=== PATIENT | male | born 1940 | race Caucasian/White ===

== ENCOUNTER 2019-07-24 07:27 | Emergency (ER) | payer BC, SELFPAY ==
[2019-07-24] VITALS (20 sets, daily range): BP systolic 113–149; BP diastolic 69–98; PULSE 92; RESP 20; TEMP 36.5; O2SAT 96–100
--- NOTE | 2019-07-24 07:57 | ED.MALEGU ---
HPI - Male Genitourinary General Chief complaint: Urogenital-Male Stated complaint: difficulty urinating Time Seen by Provider: 07/24/19 07:33 Source: patient Mode of arrival: ambulatory Limitations: no limitations History of Present Illness HPI Narrative: This is a 79 year old male with history of urination retention in which he self cath daily who presents with complaint of inability to urinate. He has been been performing self catheterizations 2 -3 times daily for 2 years. He states starting a day and a half ago he has been unable to get catheter to pass. He still has been able to urinate small amounts until this morning. He states he was last able to urinate at 1130 last night and this morning he can not urinate at all. He denies associated nausea, vomiting, fever, or back pain. He has lower abdominal pressure. Related Data Allergies Allergy/AdvReac Type Severity Reaction Status Date / Time No Known Allergies Allergy Verified 07/24/19 07:47 Review of Systems Review of Systems: All systems reviewed & are unremarkable except as noted in HPI and below Constitutional: Constitutional: Denies chills and Denies fever(s) Respiratory: Respiratory: Reports no additional respiratory complaints Gastrointestinal: Gastrointestinal: Reports abdominal pain, Denies diarrhea, Denies nausea, Denies odynophagia and Denies vomiting Genitourinary: Genitourinary: Denies flank pain Musculoskeletal: Musculoskeletal: Denies back pain PMFSH Past Medical History Medical History (Updated 07/24/19 @ 10:52 by Nicole Maciel MD) History of BPH Surgical History Surgical History (Updated 07/24/19 @ 07:58 by Nicole Maciel MD) S/P TURP Social History Social History Gender identity (if verbalized by the patient): Male Exam Narrative: Exam Narrative: GENERAL: Well-appearing, well-nourished, and in no acute distress. HEAD: Normocephalic, atraumatic EYES: PERRLA and EOMI, conjunctiva clear without discharge THROAT:Mucous membranes moist, Oropharynx normal without erythema, exudate, peritonsillar swelling or fluctuance NECK: Supple, without lymphadenopathy or mass RESPIRATORY: No respiratory distress, Airway patent, Respirations non-labored, Clear to auscultation without rales, rhonchi or wheeze HEART: Regular rate and rhythm. No murmur heard. Normal peripheral pulses. ABDOMEN: Soft, nontender, Distended, normal active bowel sounds. No masses. No rebound or guarding, No organomegaly. EXTREMITIES: No edema, normal strength with full range of motion. SKIN: Warm, dry, normal color without rash NEURO: Alert and oriented x3. CN 2-12 grossly intact. No focal deficits. PSYCH: Normal mood and affect. Course Reevaluation(s) Reevaluation #1: Dr. Powell came down to ER to perform cystoscope and dilation. Nursing states patient left ER before he could be discharge with antibiotics Date: 07/24/19 Time: 10:50 Reevaluation #2: Patient was called at home and prescription of cipro transmitted to his pharmacy Date: 07/24/19 Time: 17:23 Consultations Consultation #1: I Discussed case with DR. Powell and he will come down to ER to perform cysto and possible dilation. He request patient to be given dose of antibiotics. Date: 07/24/19 Time: 08:53 Vital Signs Vital signs: Vital Signs Pulse Oximetry 96 07/24/19 07:43 Temperature 97.7 F 07/24/19 07:45 Pulse Rate 92 07/24/19 07:45 Respiratory Rate 20 07/24/19 07:45 Blood Pressure 128/88 07/24/19 10:01 Pulse Oximetry 97 07/24/19 10:00 MDM - Male Genitourinary Lab Data Result diagrams: 07/24/19 08:10 07/24/19 08:10 Labs: Lab Results 07/24/19 07/24/19 07/24/19 Range/Units 08:10 08:10 10:17 WBC 12.9 H (4.5-10.0) K/mm3 RBC 4.88 (4.6-6.20) M/mm3 Hgb 13.9 L (14.0-18.0) g/dL Hct 42.2 (42.0-52.0) % MCV 86.5 (80-100) fl MCH 28.5 (26-34) pg MCHC 32.9 (32-36) g/dl RDW 13.2
[2019-07-24 08:16] LABS: Basophils Absolute Auto 0.1 K/mm3 (0.0-0.1); Basophils Percent Auto 0.6 % (0.2-1.2); Eosinophils Absolute Auto 0.3 K/mm3 (0-0.3); Eosinophils Percent Auto 2.4 % (0-4.4); Hematocrit 42.2 % (42.0-52.0); Hemoglobin 13.9 g/dL (14.0-18.0); Immature Granulocyte Absolute 0.11 K/mm3 (0.00-0.031); Immature Granulocyte Percent A 0.9 % (0-0.5); Lymphocytes Absolute Auto 1.97 K/mm3 (0.9-3.2); Lymphocytes Percent Auto 15.2 % (18.3-44.2); Mean Corpuscular HGB Conc 32.9 g/dl (32-36); Mean Corpuscular Hemoglobin 28.5 pg (26-34); Mean Corpuscular Volume 86.5 fl (80-100); Mean Platelet Volume 9.8 fl (7.4-10.4); Monocytes Absolute Auto 0.9 K/mm3 (0.1-0.6); Monocytes Percent Auto 6.8 % (2.6-8.5); Neutrophils Absolute Auto 9.6 K/mm3 (1.3-6.7); Neutrophils Percent Auto 74.1 % (45.5-73.1); Platelet Count Result 222 k/mm3 (150-375); Red Blood Count 4.88 M/mm3 (4.6-6.20); Red Cell Distribution Width 13.2 % (11.5-14.5); White Blood Count 12.9 K/mm3 (4.5-10.0)
[2019-07-24 08:30] LABS: Alanine Aminotransferase 21 U/L (4-50); Alkaline Phosphatase 100 U/L (38-126); Aspartate Amino Transferase 27 U/L (17-59); Bilirubin,Total 0.4 mg/dL (0.2-1.3); Blood Urea Nitrogen 23 mg/dL (9-20); Calcium 9.2 mg/dL (8.4-10.2); Carbon Dioxide 23 mmol/L (22-30); Chloride 105 mmol/L (98-107); Estimated CRCL calculation 28 ml/min; Estimated Glomerular Filt Rate 34; Glucose 111 mg/dL (75-110); Potassium 4.1 mmol/L (3.4-5.0); Sodium 135 mmol/L (137-145)
[2019-07-24] MEDS: CIPROFLOXACIN 500 MG TAB PO (10:05)
[2019-07-24 10:40] LABS: Add Urine Microscopic? YES; Appearance Urine Cloudy (Clear); Bilirubin Urine Negative (Negative); Blood Urine 3+ (Negative); Color Urine Yellow (Yellow); Glucose Urine UA Negative (Negative); Ketones Urine Negative (Negative); Leukocyte Esterase Ur 3+ LEU/UL (Negative); Nitrate Urine Positive (Negative); Protein Urine 2+ mg/dL (Negative); Specific Grav Ur 1.013 (1.001-1.035); Urobilinogen Urine Negative mg/dL (<2.0)
[2019-07-24 10:43] LABS: Bacteria Urine Trace /hpf; Budding Yeast Urine Present /hpf; RBC Urine >75 /hpf (0-2); Transitional Epi Cells Urine Rare /hpf (None Seen); WBC Clumps Urine Present /HPF; WBC Urine >75 /hpf
--- NOTE | 2019-07-24 18:42 | CONS_ITS ---
DATE OF CONSULTATION: 07/24/2019 PHYSICIAN REQUESTING CONSULTATION: Dr. Maciel in the emergency department. REASON FOR CONSULTATION: Urinary retention. HISTORY OF PRESENT ILLNESS: The patient is a 79-year-old gentleman with a history of urinary retention. The patient does CIC at home, however, only catheterizes daily. The patient has not been able to catheterize for over 24 hours. Now the patient presented to the emergency department due to his inability to place the catheter and suprapubic tenderness. The patient has had transurethral resection in the past with Dr. Paz with subsequent bladder neck contracture. PAST MEDICAL HISTORY: BPH. PAST SURGICAL HISTORY: TURP. PHYSICAL EXAM: VITAL SIGNS: The patient is afebrile. Vital signs are stable. GENERAL: He is awake, alert, oriented, in no acute distress. RESPIRATORY: Breathing is unlabored. ABDOMEN: Soft, nontender, nondistended. : Shows normal phallus and bilateral descended testicles. LABORATORY DATA: White blood cell count was 12, hematocrit is 42, platelets are 222. His creatinine is 1.9. The urine was unable to be obtained. PROCEDURE: Informed consent was obtained. The patient was prepped and draped in normal fashion. I inserted a 16-Malawian cystoscope through the urethra up to the bladder neck where a contracture was noted. I was able to manipulate a wire past this contracture. We then dilated over the wire with Amplatz dilators. I was able to dilate to 12 and 14-Malawian with significant discomfort to the patient. I attempted to dilate to 16-Malawian, however, the patient was unable to tolerate due to pain. I attempted to place a 16-Malawian catheter over the wire; however, it would not pass easily. I therefore passed a needle through the tip of a 14-Malawian catheter to create a [place] tip and then advanced a 14-Malawian catheter over the wire with return of dark yellow urine. Urine was then sent for analysis and culture. It did show nitrite positivity as well as white blood cells and red blood cells. Urine was sent for culture. The catheter was left to gravity drainage. The patient tolerated the procedure with discomfort, however, in good condition. ASSESSMENT AND PLAN: The patient has a history of bladder neck contracture, status post transurethral resection of the prostate, in need for catheterization. 1. I was able to dilate the patient's bladder neck to 14-Malawian and place a catheter. The catheter is to stay in place for approximately 2 weeks. He will then follow up in the office for catheter removal. Urine was sent for culture. He should be sent home on empiric ciprofloxacin. 2. In the vermin exterminator, the patient likely should catheterize more than once daily, especially given his renal insufficiency. We should recheck a BMP upon return to the office and consider more frequent catheterizations down the road. ETAI Marianela JUAREZ [employer]ENDING RELATIONSHIP MANAGER COMMERCIAL LENDING RELATIONSHIP MANAGER D I MT: Tanner
== END 2019-07-24 10:51 | disposition left against medical advice (07) ==
PROVIDERS: Emergency Provider General Practice; PCP Internal Medicine
DX: T83.511A Infection and inflammatory reaction due to indwelling urethral catheter, initial encounter (principal); N40.1 Benign prostatic hyperplasia with lower urinary tract symptoms; R33.8 Other retention of urine
CPT/HCPCS: 36415; 51703; 52281; 80053; 81001; 85025; 87077; 87086; 87088; 87186; 99283; A9270; C1726; C1769; J7030

== ENCOUNTER 2020-05-07 11:17 | Emergency (ER) | payer BC, SELFPAY ==
[2020-05-07] VITALS (7 sets, daily range): BP systolic 95–131; BP diastolic 50–82; PULSE 79–90; RESP 17–21; TEMP 35.9–36.7; O2SAT 95–99
--- NOTE | ~2020-05-07 | CT_ITS ---
EXAMINATION: CT brain wo con INDICATION: Dizziness and falls COMPARISON: None TECHNIQUE: Standard unenhanced head CT. The dose-length product (DLP) was 605.33 mGy-cm. The mA was a djusted according to patient size. Iterative reconstruction technique was employed. FINDINGS: There is no acute intraparenchymal hemorrhage. No evidence of mass lesion. No evidence of a cute infarction. There is moderate periventricular and subcortical hypodensity probably related to sm all vessel ischemic disease. There is moderate prominence of the sulci and ventricles related to cere bral atrophy. Intracranial calcified cerebral atherosclerosis is noted. There are no extra-axial stacey ections. There is no mass effect or midline shift. Changes in the globes are likely from ocular lens surgery. The visualized sinuses and mastoid air cells are well aerated. IMPRESSION: 1. No acute intracranial abnormality. 2. Age related findings. Reviewed, dictated and finalized at location A.
--- NOTE | ~2020-05-07 | XR_ITS ---
EXAMINATION: XR chest 1V INDICATION: Left chest pain after fall TECHNIQUE: Frontal view of the chest is obtained. COMPARISON: None available FINDINGS: The lungs are free of acute opacities. There is no pleural effusion or pneumothorax. The ca rdiomediastinal silhouette is normal. No displaced rib fracture is identified. IMPRESSION: 1. No acute cardiopulmonary abnormality. Reviewed, dictated and finalized at location A.
[2020-05-07 11:49] LABS: Basophils Absolute Auto 0.1 K/mm3 (0.0-0.1); Basophils Percent Auto 0.3 % (0.2-1.2); Eosinophils Absolute Auto 0.2 K/mm3 (0-0.3); Eosinophils Percent Auto 1.2 % (0-4.4); Hematocrit 43.9 % (42.0-52.0); Hemoglobin 14.4 g/dL (14.0-18.0); Immature Granulocyte Absolute 0.16 K/mm3 (0.00-0.031); Immature Granulocyte Percent A 1.1 % (0-0.5); Lymphocytes Absolute Auto 1.87 K/mm3 (0.9-3.2); Lymphocytes Percent Auto 12.7 % (18.3-44.2); Mean Corpuscular HGB Conc 32.8 g/dl (32-36); Mean Corpuscular Hemoglobin 28.9 pg (26-34); Mean Platelet Volume 9.8 fl (7.4-10.4); Monocytes Absolute Auto 0.6 K/mm3 (0.1-0.6); Monocytes Percent Auto 3.9 % (2.6-8.5); Neutrophils Absolute Auto 11.9 K/mm3 (1.3-6.7); Neutrophils Percent Auto 80.8 % (45.5-73.1); Platelet Count Result 213 k/mm3 (150-375); Red Blood Count 4.99 M/mm3 (4.6-6.20); Red Cell Distribution Width 13.1 % (11.5-14.5); White Blood Count 14.7 K/mm3 (4.5-10.0)
--- NOTE | 2020-05-07 11:58 | ED.FALL ---
HPI - Fall General Chief Complaint: Fall Stated Complaint: back pain after fall Time Seen by Provider: 05/07/20 11:23 Source: patient and family Mode of arrival: ambulatory Limitations: no limitations History of Present Illness HPI Narrative: Patient presents for evaluation after experiencing a fall at home around 1000 this morning. He states he lost (his) balance in the bathroom due to his center of gravity being off . He landed on his left upper extremity. He did not hit his head or have loss of consciousness. He denies pain in the left upper extremity but states he has some bruising over the left elbow. He is not on any blood thinners. No vomiting since episode. She does report some left-sided rib pain, rated 7 out of 10 in severity. He also has some right knee and right hip pain from a fall 2 weeks ago when he tripped over his pants. He contacted his son who came to his home where he lives independently. Patient states he has had dizziness from the time that he called his son until arriving here in the ER. His dizziness has since resolved. He denies any chest pain or shortness of breath. Related Data Home Medications Medication Instructions Recorded Confirmed ibuprofen 800 mg PO Q6H PRN 05/07/20 05/07/20 Allergies Allergy/AdvReac Type Severity Reaction Status Date / Time No Known Allergies Allergy Verified 05/07/20 11:21 Review of Systems Review of Systems: Narrative: CONSTITUTIONAL: Denies fever, chills, or sweats. EYES: Denies visual changes, redness, or discharge. ENT: Denies rhinorrhea, congestion, sore throat, or otalgia. CARDIOVASCULAR: Denies chest pain, palpitations, or edema. RESPIRATORY: Denies cough or dyspnea. GASTROINTESTINAL: Denies abdominal pain, nausea, vomiting, or diarrhea. GENITOURINARY: Denies dysuria or hematuria. SKIN: Reports bruising over the left elbow. Denies rash or itching. MUSCULOSKELETAL: Reports left-sided posterior rib pain, right hip and right knee pain. NEUROLOGIC: Reports dizziness following his fall until arriving here in the emergency department, now resolved. Denies headache, numbness, or weakness. PSYCHIATRIC: Denies anxiety or depression. [facility] Past Medical History Medical History History of BPH Surgical History Surgical History S/P TURP Family History Family History Father Leukemia Social History Social History Smoking status: Never smoker Alcohol intake: never Substance use: never Living arrangements: alone Gender identity (if verbalized by the patient): Male Spiritual care concerns: No Exam Narrative: Exam Narrative: GENERAL: Well-appearing, well-nourished, and in no acute distress. HEAD: Normocephalic, atraumatic. EYES: PERRLA and EOMI. ENT: Nares clear, no rhinorrhea or epistaxis. Mucous membranes moist. Oropharynx without tonsillar hypertrophy exudate or other lesions. Bilateral TMs pearly stone nonbulging NECK: Supple. No adenopathy or masses. No carotid bruits or JVD CHEST: Tenderness over left posterior ribs. Lungs are clear to auscultation. No respiratory distress. No wheezes rales or rhonchi HEART: Regular rate and rhythm. No murmur heard. Normal peripheral pulses. ABDOMEN: Soft, nontender, nondistended, normal active bowel sounds. EXTREMITIES: Full range of motion of the left elbow without crepitus or deformity. No tenderness. No tenderness in the right hip or right knee, with full range of motion intact. No joint laxity noted. Normal range of motion. No edema. SKIN: Warm, dry, no rash. Ecchymosis over left elbow. NEURO: No focal deficits. Alert and oriented x3. PSYCH: Normal mood and affect. Course Course Emergency Course: This is an 80-year-old male that presented after having
[2020-05-07 12:08] LABS: Alanine Aminotransferase 20 U/L (4-50); Albumin Level 3.8 g/dL (3.5-5.1); Alkaline Phosphatase 85 U/L (38-126); Anion Gap 8 mmol/L (8-16); Aspartate Amino Transferase 27 U/L (17-59); Bilirubin,Total 0.6 mg/dL (0.2-1.3); Blood Urea Nitrogen 18 mg/dL (9-20); Calcium 8.7 mg/dL (8.4-10.2); Carbon Dioxide 24 mmol/L (22-30); Chloride 105 mmol/L (98-107); Estimated CRCL calculation 39 ml/min; Estimated Glomerular Filt Rate 53; Glucose 165 mg/dL (75-110); Potassium 4.2 mmol/L (3.4-5.0); Sodium 137 mmol/L (137-145)
--- NOTE | 2020-05-07 12:31 | PC.NURSE ---
Requested an EKG from patient who declined it. Nurse and physician has been notified. BETTE
[2020-05-07 12:32] LABS: NT Pro B Type Natriuretic Pept 26 PG/ML (5-100); Troponin I < 0.012 ng/mL (0.000-0.034)
--- NOTE | 2020-05-07 13:39 | PC.NURSE ---
I was notified by template reproduction technician that this patient refuses EKG and by the psychology technician that patient had refused to allow CT scans. Blood draw tech also reports that patient wished to refuse further blood tests. At approximately 1230 I went into speak with this patient and he reports to me that he only consents to having x-rays of his right leg, hip, and chest done. He also tells me that he did not consent to having CT performed. I spoke with Flora in [place] who told me that the initially did tell her that he was claustrophobic and did not want the test. Flora also tells me that she explained that the test was quick and that he would not be inside a machine long. Flora states that the patient then agreed to allow her to run the CT. He restates that he does not wish to have any other treatment. He was reading paperwork that was provided to him by registration and asked questions about this paperwork. I answered questions to the best of my ability and I offered to allow the patient to speak with my supervisor special effects if he had further questions. Patient declined to speak with the supervisor special effects or charge nurse. He did, again, verbalize that he did not give consent for other medical tests and I reiterated that he was able to refuse any test at any time.
== END 2020-05-07 14:52 | disposition home or self-care (01) ==
PROVIDERS: Emergency Medicine; Emergency Provider Nurse Practitioner; PCP Internal Medicine
DX: S50.02XA Contusion of left elbow, initial encounter (principal); N40.0 Benign prostatic hyperplasia without lower urinary tract symptoms; W18.39XA Other fall on same level, initial encounter
CPT/HCPCS: 36415; 70450; 71045; 80053; 83880; 84484; 85025; 99284